=== PATIENT | male | born 1945 | race Two or more races ===

== ENCOUNTER 2019-05-20 17:00 | Emergency (ER) | payer MEDICARE, OTHER ==
[~2019-05-20] VITALS: Ht 167.6 cm; Wt 63.5 kg
[2019-05-20 18:46] LABS: Basophils # (auto) 0.1 uL; Basophils % (auto) 0.8 % (0.0-2.0); Eosinophils # (auto) 0.1 uL; Eosinophils % (auto) 1.7 % (0.0-7.0); Hematocrit 33.5 % (41.0-53.0); Hemoglobin 11.4 g/dL (13.5-17.5); Lymphocytes # (auto) 0.4 uL; Lymphocytes % (auto) 5.2 % (10.0-50.0); Mean Corpuscular Hemoglobin 31.9 pg (28.0-32.0); Mean Corpuscular Hgb Conc. 34.1 g/dL (32.0-36.0); Mean Corpuscular Volume 93.8 fL (80.0-100.0); Monocytes # (auto) 0.8 uL; Monocytes % (auto) 9.4 % (0.0-12.0); Neutrophils # (auto) 6.9 uL; Neutrophils % (auto) 82.9 % (37.0-80.0); Platelet Count (auto) 133 10^3/uL (140-450); Red Blood Cells 3.57 10^6/uL (4.5-5.90); White Blood Cell 8.4 10^3/uL (4.4-10.8)
[2019-05-20 19:04] LABS: Alanine Aminotransferase 73 U/L (16-61); Albumin 3.5 g/dL (3.4-5.0); Anion Gap 12 (5-15); Aspartate Aminotransferase 79 U/L (15-37); BUN/Creatinine Ratio 26.2; Blood Urea Nitrogen 37 mg/dL (7-18); Calcium 8.1 mg/dL (8.5-10.1); Carbon Dioxide 21 mmol/L (21-32); Chloride 110 mmol/L (98-107); GFR African American 63 mL/min; GFR Non-African American 52 mL/min; Glucose 147 mg/dL (74-106); Magnesium 2.2 mg/dL (1.6-2.6); Potassium 4.3 mmol/L (3.5-5.1); Sodium 143 mmol/L (136-145)
[2019-05-20 19:08] LABS: Alkaline Phosphatase 104 U/L (45-117); Bilirubin, Total 0.4 mg/dL (0.2-1.0); Total Protein 6.8 g/dL (6.4-8.2)
[2019-05-20] MEDS ORDERED: ONDANSETRON HCL 4 MG/2 ML VIAL IV ONE ×2 (19:45→23:15)
[2019-05-20] MEDS ORDERED: TETANUS-DIPTH-ACEL PERTUSSIS 0.5ML SYRG IM ONE (19:45)
[2019-05-20] MEDS ORDERED: MORPHINE SULFATE 4 MG/ML SYR/VIAL IV ONE ×2 (19:45→23:15)
[2019-05-20] MEDS ORDERED: cefTRIAXone 1GM/50ML D5W 50 ML IV ONE (19:45)
[2019-05-20 21:40] LABS: Urine Bacteria NONE SEEN /hpf (None Seen); Urine Blood TRACE /uL (Negative); Urine Specific Gravity 1.011 (1.001-1.035); Urine WBC 1 /hpf (0 - 3)
[2019-05-20 23:16] VITALS: BP 124/70
== END 2019-05-20 21:26 | disposition short-term general hospital (02) ==
LOC: EDBD 17:00 → ER 17:06
DX: S22.41XA Multiple fractures of ribs, right side, initial encounter for closed fracture (principal); S40.811A Abrasion of right upper arm, initial encounter; J93.9 Pneumothorax, unspecified; M54.9 Dorsalgia, unspecified; E11.9 Type 2 diabetes mellitus without complications; W10.8XXA Fall (on) (from) other stairs and steps, initial encounter; Y93.89 Activity, other specified; Y99.8 Other external cause status; Y92.89 Other specified places as the place of occurrence of the external cause
CPT/HCPCS: 36415; 70450; 71250; 72125; 72128; 80053; 81001; 83735; 83880; 84484; 85025; 90471; 90715; 93005; 96365; 96375; 96376; 99285; J0696; J2270; J2405